=== PATIENT | male | born 1985 | race Caucasian/White ===

== ENCOUNTER 2017-10-06 17:12 | Emergency (ER) | payer OTHER | END 2017-10-06 19:38 | disposition home or self-care (01) | LOC: FTE 17:12 | DX: S02.609A Fracture of mandible, unspecified, initial encounter for closed fracture (principal); R40.2412 Glasgow coma scale score 13-15, at arrival to emergency department; X58.XXXA Exposure to other specified factors, initial encounter; Y92.9 Unspecified place or not applicable | CPT/HCPCS: 99282; Z7502 ==